=== PATIENT | male | born 1995 | race Two or more races ===

== ENCOUNTER 2017-12-16 11:04 | Emergency (ER) | payer MEDICAID ==
--- NOTE | 2017-12-16 12:21 | EDPHY ---
HPI/HX/ROS/PE/MDM Narrative: CHIEF COMPLAINT: Chest pain HPI: The patient is a 22-year-old male with no significant past medical history. He reports intermittent sharp left-sided chest pain over the last couple years. This has been increasing in frequency and has become very severe over the last 2 days. Pain is worse with a deep breath. He denies chest trauma. He states he has been to [facility] a number of times for the same complaint but does not receive adequate evaluation. REVIEW OF SYSTEMS: Aside from elements discussed in the HPI, a comprehensive 10-point review of systems was reviewed and is negative. PMH:None significant. No known significant family history. SOCIAL HISTORY: Single, originally from [place]. Primary physician is [facility]. PHYSICAL EXAM: General:Patient is alert, in no acute distress. ENT:Eyes are normal to inspection. ENT inspection normal. Neck: Normal inspection. Full range of motion. Respiratory:No respiratory distress. Breath sounds normal bilaterally. Cardiovascular: Regular rate and rhythm. Strong peripheral pulses. Normal cap refill. Abdomen:The abdomen is nontender to palpation. There are no peritoneal signs. There are normal bowel sounds. Back: Normal to inspection. No tenderness to palpation. Skin: Normal color. No rash. Warm and dry. Extremities: Normal appearance. Full range of motion. Neuro: Oriented x3. Normal motor function. Normal sensory function. MDM: This is a young healthy male who presents with intermittent chest pain for more than a year. We performed an extensive workup including labs, CXR and ECG, and all are normal. I see no evidence for ACS, PE, PTX, TAD or PNA. His vitals are normal. He is comfortable going home. - Data Points Imaging Results: Imaging Impressions Chest X-Ray 12/16/17 11:50 Impression: Clear lungs. No pneumothorax or explanation for left-sided pain. Imaging: I viewed and interpreted images myself Laboratory Results: Laboratory Results 12/16/17 12:30 12/16/17 12:30 12/16/17 12/16/17 12/16/17 12:30 12:30 12:30 WBC 7.74 10^3/uL 10^3/uL (3.80-9.50) RBC 4.52 10^6/uL 10^6/uL (4.40-6.38) Hgb 14.2 g/dL g/dL (13.7-17.5) Hct 40.5 % % (40.0-51.0) MCV 89.6 fL fL (81.5-99.8) MCH 31.4 pg pg (27.9-34.1) MCHC 35.1 g/dL g/dL (32.4-36.7) RDW 11.7 % % (11.5-15.2) Plt Count 279 10^3/uL 10^3/uL (150-400) MPV 8.7 fL fL (8.7-11.7) Neut % (Auto) 43.8 % % (39.3-74.2) Lymph % (Auto) 45.1 % H % (15.0-45.0) [place] % (Auto) 9.4 % % (4.5-13.0) Eos % (Auto) 0.9 % % (0.6-7.6) Baso % (Auto) 0.5 % % (0.3-1.7) Nucleat RBC Rel Count 0.0 % % (0.0-0.2) Absolute Neuts (auto) 3.39 10^3/uL 10^3/uL (1.70-6.50) Absolute Lymphs (auto) 3.49 10^3/uL H 10^3/uL (1.00-3.00) Absolute Monos (auto) 0.73 10^3/uL 10^3/uL (0.30-0.80) Absolute Eos (auto) 0.07 10^3/uL 10^3/uL (0.03-0.40) Absolute Basos (auto) 0.04 10^3/uL 10^3/uL (0.02-0.10) Absolute Nucleated RBC 0.00 10^3/uL 10^3/uL (0-0.01) Immature Gran % 0.3 % % (0.0-1.1) Immature Gran # 0.02 10^3/uL 10^3/uL (0.00-0.10) D-Dimer < 0.27 ug/mLFEU ug/mLFEU (0.00-0.50) Sodium 142 mEq/L mEq/L (135-145) Potassium 4.4 mEq/L mEq/L (3.5-5.2) Chloride 106 mEq/L mEq/L (97-110) Carbon Dioxide 27 mEq/l mEq/l (22-31) Anion Gap 9 mEq/L mEq/L (8-16) BUN 14 mg/dL mg/dL (7-23) Creatinine 0.9 mg/dL mg/dL (0.7-1.3) Estimated GFR > 60 Glucose 90 mg/dL mg/dL (70-100) Calcium 9.0 mg/dL mg/dL (8.5-10.4) Troponin I < 0.012 ng/mL ng/mL (0.000-0.034) General Time Seen by Provider: 12/16/17 12:10 Initial Vital Signs: Initial Vital Signs Temperature (C) 36.7 C 12/16/17 11:10 Heart Rate 66 12/16/17 11:10 Respiratory Rate 18 12/16/17 11:10 Blood Pressure 123/60 H 12/16/17 11:10 O2 Sat (%) 98 12/16/17 11:10 O2 Delivery Mode Room Air Allergies/Adverse Reactions: No Known Allergies Allergy (Unverified 12/16/17 11:10) Home Medications: Medication Instructions Recorded NK [No Known Home Meds] 12/16/17 Departure - Departure Disposition: Home, Routine, Self-Care Clinical Impression: Chest pain Condition: Good Instructions: Chest Pain (ED) Additional Instructions: Follow-up with your primary doctor within 72 hours. Return to the Emergency Department for fever, chest pain, shortness of breath, increasing pain or other worsening of condition. Referrals: Torsten Walls MD [Medical Doctor] - As per Instructions
--- NOTE | 2017-12-16 12:26 | CPEKG ---
Heart Rate: 56 RR Interval: 1071 P-R Interval: 132 QRSD Interval: 80 QT Interval: 432 QTC Interval: 417 P [place]: 54 QRS [place]: 80 T Wave [place]: 53 EKG Severity - ABNORMAL ECG - EKG Impression: SINUS RHYTHM Electronically Signed By: Pravin Zambrano 16-Dec-2017 15:05:03
[2017-12-16 12:42] LABS: PLATELET COUNT 279 10^3/uL (150-400)
[2017-12-16 13:39] VITALS: BP 103/55
== END 2017-12-16 13:40 | disposition home or self-care (01) ==
DX: R07.9 Chest pain, unspecified (principal)